=== PATIENT | female | born 1995 | race Caucasian/White ===

== ENCOUNTER 2017-04-25 20:06 | Emergency (ER) | payer BC ==
[~2017-04-25 20:06] MED LIST: AMOX-559 PO; EPIN0.3P15 IM; PRED-1 PO; PRED-420 PO
--- NOTE | 2017-04-25 20:12 | ER Report ---
History and Physical Time Seen By MD: 20:12 HPI/ROS CHIEF COMPLAINT: Allergic reaction HISTORY OF PRESENT ILLNESS: This is a 21-year-old female who presents to the emergency department with an allergic reaction. Patient states that she had an allergic reaction to a condom. Patient states that she had mild reaction about one week ago with a local rash and genital area. Patient states that today she had a worsening reaction to a condom noticed the rash around 4:30pm this afternoon she had a rash that started in her groin moved to the upper torso, her arms and now her her neck. Patient states that she does feel like her throat is "not quite right" and a little "tight", patient denies shortness of breath or chest pain. Patient denies using her EpiPen at home. Patient does not look like she is in distress. Vital signs are stable when I'm in the room. No audible wheezing. Patient denies fevers, chills, aches, nausea or vomiting. No headaches. REVIEW OF SYSTEMS: Constitutional: No fever, no chills. Eyes: No discharge. ENT: As above. Cardiovascular: No chest pain, no palpitations. Respiratory: No cough, no shortness of breath. Gastrointestinal: No abdominal pain, no vomiting. Genitourinary: No hematuria. Musculoskeletal: No back pain. Skin: As above Neurological: No headache. Allergies: Coded Allergies: BEE STINGS (Verified Allergy, Severe, 02/06/17) tree nut (Verified Allergy, Severe, 02/06/17) Home Meds Active Scripts Epinephrine (EPIPEN 2-CLIVE) 0.3 Mg/0.3 Ml Pen.injctr, 0.3 MG IM PRN, #1 PACK 0 Refills Prov:YADIEL ZELAYA BOTTOM BLEACHER- 04/25/17 Reported Medications [ control pills] No Conflict Check 04/25/17 Discontinued Reported Medications Epinephrine (EPIPEN 2-CLIVE) 0.3 Mg/0.3 Ml Pen.injctr, 0.3 MG IM 02/04/17 Discontinued Scripts Prednisone (PREDNISONE) 20 Mg Tablet, 20 MG PO BID, #10 TAB Prov:YADIEL ZELAYA [facility]- 04/25/17 Amoxicillin/Pot Clav 875-125 Mg Tab (AUGMENTIN 875-125 TABLET) 1 Each Tablet, 1 TAB PO Q12H for 21 Days, #42 TAB Prov:BUTCH DICKERSON MD 02/07/17 Prednisone 10 Mg Tab (PREDNISONE 10 MG TAB) 10 Mg Tablet, 50 MG PO QDAY for 3 Days, #47 TAB 50 mg by mouth daily for 3 days then 40 mg by mouth daily for 3 days then 30 mg by mouth daily for 3 days then 20 mg by mouth daily for 3 days then 10 mg by mouth daily for 3 days then 5 mg by mouth daily for 3 days. Prov:BUTCH DICKERSON MD 02/04/17 Past Medical/Surgical History A shunt has a past medical and surgical history of syncopal episodes, allergic reactions. Reviewed Nurses Notes: Yes Hx Substance Use Disorder: No Constitutional Vital Sign - Last 24 Hours 04/25/17 04/25/17 04/25/17 04/25/17 20:10 20:10 20:21 20:36 Temp 99.5 Pulse 70 67 89 Resp 18 B/P (MAP) 117/76 (90) 117/76 Pulse Ox 96 95 98 O2 Delivery Room Air 04/25/17 04/25/17 04/25/17 04/25/17 20:51 21:00 21:06 21:11 Pulse 91 90 91 B/P (MAP) 131/74 (93) Pulse Ox 100 99 99 Intake and Output 04/25/17 04/25/17 04/26/17 15:00 23:00 07:00 Intake Total 50 ml Balance 50 ml Physical Exam General Appearance: The patient is alert, has no immediate need for airway protection and no signs of toxicity. Eyes: Pupils equal and round no pallor or injection. ENT, Mouth: Mucous membranes are moist. Erythema to the posterior oropharynx with 2+ tonsillar hypertrophy. No uvular edema. Respiratory: There are no retractions, wheezing or adventitious sounds, lungs are clear to auscultation. Cardiovascular: Regular rate and rhythm, no murmurs, clicks or rubs. Gastrointestinal: Abdomen is soft and non tender, no masses, bowel sounds normal. Neurological: Alert and oriented 4. Moving all extremities. Following all commands. No focal neuro deficits. Skin: Warm and dry. Urticarial rash to the groin, chest, abdomen, back, neck and arms. The rash is blanchable, not coalesced. Musculoskeletal: Neck is supple non tender. Extremities are nontender, nonswollen and have full range of motion. DIFFERENTIAL DIAGNOSIS: After history and physical exam differential diagnosis was considered for allergic reaction. Medical Decision Making ED Course/Re-evaluation Clinical Indication for ER IV: Hydration, IV Access ED Course The patient was admitted to room. History and physical were obtained. Differential diagnosis considered. An IV was started. A 1 L normal saline bolus was given. EpiPen was used. 25 mg IV Benadryl, iron 25 mg IV Solu-Medrol, 20 mg IV and famotidine. The rash has improved. Patient states her breathing has improved as well. Patient states she feels tired but overall improved a prescription for prednisone and EpiPen's were sent to the patient's pharmacy. I did instruct patient to take the prednisone as directed. Patient was also encouraged to follow up with her primary care provider. She was also encouraged to return to the emergency department for any other concerns or worsening symptoms. Patient was agreeable to this plan of care. Patient had no questions or concerns at this time was discharged home. Decision to Disposition Date: Apr 25, 2017 Decision to Disposition Time: 21:30 Depart Departure Latest Vital Signs Vital Signs Date Time Temp Pulse Resp B/P (MAP) Pulse Ox O2 Delivery O2 Flow Rate FiO2 04/25/17 21:11 91 99 04/25/17 21:00 131/74 (93) 04/25/17 20:10 99.5 18 Room Air Impression: Primary Impression: Allergic reaction Condition: Improved Disposition: HOME OR SELF-CARE New Scripts Epinephrine (EPIPEN 2-CLIVE) 0.3 Mg/0.3 Ml Pen.injctr 0.3 MG IM PRN, #1 PACK 0 Refills Prov: YADIEL ZELAYA BOTTOM BLEACHER-BC 04/25/17 Patient Instructions: General Allergic Reaction (ED), Urticaria (ED) Additional Instructions: Drink plenty of fluids. Get plenty of rest. Follow-up with your primary care provider in 2-4 days if no improvement. If symptoms become worse we had shortness of breath or chest pain return to the emergency department immediately. If you use your EpiPen be sure to follow up in the emergency department. You can take 25-50 mg of Benadryl for the allergic reaction. Take the prednisone as prescribed. Do not use the condoms that caused the reaction. Problem Qualifiers Primary Impression: Allergic reaction Encounter type: initial encounter Qualified Codes: T78.40XA - Allergy, unspecified, initial encounter YADIEL ZELAYA-VIVIEN Apr 25, 2017 20:12
[2017-04-25] MEDS ORDERED: methylPREDNIS SUCC 125 MG/2ML IVP ONE (20:20)
[2017-04-25] MEDS ORDERED: FAMOTIDINE(*) 20MG/50ML PREMIX 50 ML IVPB ONE (20:20)
[2017-04-25] MEDS ORDERED: diphenhydrAMINE 50 MG/ML VIAL IVP ONE (20:20)
[2017-04-25] MEDS ORDERED: EPINEPHrine 0.3 MG SYR IM ONLY ONE (20:20)
[2017-04-25] MEDS ORDERED: NS(*) 0.9% 1000 ML BAG 1,000 ML IV ONE (20:20)
[2017-04-25] MEDS ORDERED: EPIN0.3P15 IM (20:36)
[2017-04-25] MEDS ORDERED: PRED20TA6 PO (20:40)
[2017-04-25] MEDS ORDERED: birth control pills (21:22)
[2017-04-25 21:30] VITALS: BP 116/64
== END 2017-04-25 21:33 | disposition home or self-care (01) ==
LOC: ER 20:22
DX: T78.40XA Allergy, unspecified, initial encounter (principal)
CPT/HCPCS: 96361; 96365; 96372; 96375; 99284; J0171; J1200; J2930; J3490; J7030

== ENCOUNTER 2018-08-09 00:15 | Emergency (ER) | payer BC ==
[~2018-08-09 00:15] MED LIST changes: +PRED20TA6 PO; +birth control pills
--- NOTE | 2018-08-09 00:24 | ER Report ---
History and Physical Time Seen By MD: 00:23 HPI/ROS CHIEF COMPLAINT: Syncopal episode HISTORY OF PRESENT ILLNESS: Patient is a 23-year-old female here with complaints of recurrent syncopal episode which occurred while the patient was urinating. Patient reportedly struck her head on the wall and was helped to bed at which time she had a recurrent syncopal episode. Patient does have a history of syncopal episodes which she describes as occurring when she stands up too quickly. Patient is afebrile, and a down [place] stable, alert and oriented. REVIEW OF SYSTEMS: Constitutional: No fever, no chills. Eyes: No discharge. ENT: No sore throat. Cardiovascular: No chest pain, no palpitations. Respiratory: No cough, no shortness of breath. Gastrointestinal: No abdominal pain, no vomiting. Genitourinary: No hematuria. Musculoskeletal: No back pain. Skin: No rashes. Neurological: + headache, + syncope Allergies: Coded Allergies: BEE STINGS (Verified Allergy, Severe, 02/06/17) tree nut (Verified Allergy, Severe, 02/06/17) Home Meds Active Scripts Epinephrine (EPIPEN 2-CLIVE) 0.3 Mg/0.3 Ml Pen.injctr, 0.3 MG IM PRN, #1 PACK 0 Refills Prov:YADIEL ZELAYA Mariann MMI TEACHER-BC 04/25/17 Reported Medications Ibuprofen (IBUPROFEN) 800 Mg Tablet, 1 TAB PO Q8H, TAB 08/09/18 [ control pills] No Conflict Check 04/25/17 Hx Substance Use Disorder: No Constitutional Vital Sign - Last 24 Hours 08/09/18 00:22 Temp 98.0 Pulse 74 Resp 16 B/P (MAP) 96/66 Pulse Ox 97 O2 Delivery Room Air Physical Exam General Appearance: The patient is alert, has no immediate need for airway protection and no signs of toxicity. Alert and oriented, no acute distress Eyes: Pupils equal and round no pallor or injection. ENT, Mouth: Mucous membranes are moist. Respiratory: There are no retractions, lungs are clear to auscultation. Cardiovascular: Regular rate and rhythm. Gastrointestinal: Abdomen is soft and non tender, no masses, bowel sounds normal. Neurological: No focal neurological deficits, cranial nerves intact Skin: Warm and dry, no rashes. Musculoskeletal: Neck is supple non tender. Extremities are nontender, nonswollen and have full range of motion. DIFFERENTIAL DIAGNOSIS: After history and physical exam differential diagnosis was considered for syncope including but not limited to vasovagal syncope, arrhythmia, dehydration, and blood loss. Medical Decision Making Data Points Result Diagram: 08/09/18 0125 08/09/18 0125 Laboratory Hematology Test 08/09/18 01:05 08/09/18 01:25 Urine Color Yellow Urine Clarity Cloudy Urine pH 7.0 pH (4.8-9.5) Urine Specific [place] 1.020 Urine Protein Negative mg/dL (NEGATIVE) Urine Glucose (UA) Negative mg/dL (NEGATIVE) Urine Ketones Negative mg/dL (NEGATIVE) Urine Blood Negative (NEGATIVE) Urine Nitrite Negative (NEGATIVE) Urine Bilirubin Negative (NEGATIVE) Urine Urobilinogen Negative mg/dL (0.2-1.9) Urine Leukocyte Esterase Negative (NEGATIVE) Urine RBC 3 /HPF (0-2/HPF) Urine WBC 5 /HPF (0-5/HPF) Urine Squamous Epithelial Cells Many /LPF (</=FEW) Urine Transitional Epithelial Cells Few /LPF (NONE-FEW) Urine Amorphous Crystals Few /HPF Urine Bacteria Few /HPF (NONE-FEW) Urine Hyaline Casts Few /LPF (NONE-FEW) Urine Mucus Few /HPF (NONE-FEW) Urine HCG, Qualitative Negative (NEGATIVE) Red Blood Count 4.40 M/uL (4.17-5.56) Mean Corpuscular Volume 88.5 fL (80.0-96.0) Mean Corpuscular Hemoglobin 30.8 pg (26.0-33.0) Mean Corpuscular Hemoglobin Concent 34.8 g/dL (32.0-36.0) Red Cell Distribution Width 12.6 % (11.5-14.5) Mean Platelet Volume 8.2 fL (7.2-11.1) Neutrophils (%) (Auto) 67.0 % (39.4-72.5) Lymphocytes (%) (Auto) 23.9 % (17.6-49.6) Monocytes (%) (Auto) 6.4 % (4.1-12.4) Eosinophils (%) (Auto) 2.2 % (0.4-6.7) Basophils (%) (Auto) 0.5 % (0.3-1.4) Nucleated RBC Relative Count (auto) 0.1 /100WBC Neutrophils # (Auto) 5.6 K/uL (2.0-7.4) Lymphocytes # (Auto) 2.0 K/uL (1.3-3.6) Monocytes # (Auto) 0.5 K/uL (0.3-1.0) Eosinophils # (Auto) 0.2 K/uL (0.0-0.5) Basophils # (Auto) 0.0 K/uL (0.0-0.1) Nucleated RBC Absolute Count (auto) 0.01 K/uL Sodium Level 139 mmol/L (137-145) Potassium Level 3.5 mmol/L (3.5-5.0) Chloride Level 105 mmol/L (98-107) Carbon Dioxide Level 21 mmol/L (22-31) Blood Urea Nitrogen 11 mg/dl (7-18) Creatinine 0.60 mg/dl (0.52-1.04) Glomerular Filtration Rate Calc > 60.0 Random Glucose 112 mg/dl (75-110) Calcium Level 9.2 mg/dl (8.4-10.2) Total Bilirubin 0.5 mg/dl (0.2-1.3) Aspartate Amino Transf (AST/SGOT) 22 U/L (0-35) Alanine Aminotransferase (ALT/SGPT) 27 U/L (0-56) Alkaline Phosphatase 66 U/L (0-126) Troponin I < 0.012 ng/ml Total Protein 6.9 g/dl (6.3-8.2) Albumin 4.0 g/dl (3.5-5.0) Chemistry Test 08/09/18 01:05 08/09/18 01:25 Urine Color Yellow Urine Clarity Cloudy Urine pH 7.0 pH (4.8-9.5) Urine Specific [place] 1.020 Urine Protein Negative mg/dL (NEGATIVE) Urine Glucose (UA) Negative mg/dL (NEGATIVE) Urine Ketones Negative mg/dL (NEGATIVE) Urine Blood Negative (NEGATIVE) Urine Nitrite Negative (NEGATIVE) Urine Bilirubin Negative (NEGATIVE) Urine Urobilinogen Negative mg/dL (0.2-1.9) Urine Leukocyte Esterase Negative (NEGATIVE) Urine RBC 3 /HPF (0-2/HPF) Urine WBC 5 /HPF (0-5/HPF) Urine Squamous Epithelial Cells Many /LPF (</=FEW) Urine Transitional Epithelial Cells Few /LPF (NONE-FEW) Urine Amorphous Crystals Few /HPF Urine Bacteria Few /HPF (NONE-FEW) Urine Hyaline Casts Few /LPF (NONE-FEW) Urine Mucus Few /HPF (NONE-FEW) Urine HCG, Qualitative Negative (NEGATIVE) White Blood Count 8.4 k/uL (4.5-11.0) Red Blood Count 4.40 M/uL (4.17-5.56) Hemoglobin 13.6 g/dL (12.0-16.0) Hematocrit 39.0 % (34.0-47.0) Mean Corpuscular Volume 88.5 fL (80.0-96.0) Mean Corpuscular Hemoglobin 30.8 pg (26.0-33.0) Mean Corpuscular Hemoglobin Concent 34.8 g/dL (32.0-36.0) Red Cell Distribution Width 12.6 % (11.5-14.5) Platelet Count 305 K/uL (150-450) Mean Platelet Volume 8.2 fL (7.2-11.1) Neutrophils (%) (Auto) 67.0 % (39.4-72.5) Lymphocytes (%) (Auto) 23.9 % (17.6-49.6) Monocytes (%) (Auto) 6.4 % (4.1-12.4) Eosinophils (%) (Auto) 2.2 % (0.4-6.7) Basophils (%) (Auto) 0.5 % (0.3-1.4) Nucleated RBC Relative Count (auto) 0.1 /100WBC Neutrophils # (Auto) 5.6 K/uL (2.0-7.4) Lymphocytes # (Auto) 2.0 K/uL (1.3-3.6) Monocytes # (Auto) 0.5 K/uL (0.3-1.0) Eosinophils # (Auto) 0.2 K/uL (0.0-0.5) Basophils # (Auto) 0.0 K/uL (0.0-0.1) Nucleated RBC Absolute Count (auto) 0.01 K/uL Glomerular Filtration Rate Calc > 60.0 Calcium Level 9.2 mg/dl (8.4-10.2) Total Bilirubin 0.5 mg/dl (0.2-1.3) Aspartate Amino Transf (AST/SGOT) 22 U/L (0-35) Alanine Aminotransferase (ALT/SGPT) 27 U/L (0-56) Alkaline Phosphatase 66 U/L (0-126) Troponin I < 0.012 ng/ml Total Protein 6.9 g/dl (6.3-8.2) Albumin 4.0 g/dl (3.5-5.0) Urinalysis Test 08/09/18 01:05 Urine Color Yellow Urine Clarity Cloudy Urine pH 7.0 pH (4.8-9.5) Urine Specific [place] 1.020 Urine Protein Negative mg/dL (NEGATIVE) Urine Glucose (UA) Negative mg/dL (NEGATIVE) Urine Ketones Negative mg/dL (NEGATIVE) Urine Blood Negative (NEGATIVE) Urine Nitrite Negative (NEGATIVE) Urine Bilirubin Negative (NEGATIVE) Urine Urobilinogen Negative mg/dL (0.2-1.9) Urine Leukocyte Esterase Negative (NEGATIVE) Urine RBC 3 /HPF (0-2/HPF) Urine WBC 5 /HPF (0-5/HPF) Urine Squamous Epithelial Cells Many /LPF (</=FEW) Urine Transitional Epithelial Cells Few /LPF (NONE-FEW) Urine Amorphous Crystals Few /HPF Urine Bacteria Few /HPF (NONE-FEW) Urine Hyaline Casts Few /LPF (NONE-FEW) Urine Mucus Few /HPF (NONE-FEW) Urine HCG, Qualitative Negative (NEGATIVE) EKG/Imaging EKG Interpretation PATIENT NAME: RNOIT PERALES : [id number] MR: [id number] V: [id number] EXAM DATE: ORDERING PHYSICIAN: AMBROSE DURAN TECHNOLOGIST: Test Reason : SYNCOPE Blood Pressure : / mmHG Vent. Rate : 102 BPM Atrial Rate : 102 BPM P-R Int : 130 ms QRS Dur : 076 ms QT Int : 326 ms P-R-T Axes : 060 056 035 degrees QTc Int : 424 ms Sinus tachycardia Nonspecific ST and T wave abnormality Abnormal ECG No previous ECGs available Referred By: Confirmed By: Imaging PATIENT NAME: Ronit Perales : 1995 MR: [id number] V: [id number] EXAM DATE: ORDERING PHYSICIAN: AMBROSE DURAN TECHNOLOGIST: Location: [facility] Patient: Ronit Perales : 1995 Visit/Account:[id number] Date of [facility]: 08/09/2018 CT BRAIN NO CONTRAST HISTORY: Fall. Syncope. COMPARISON STUDIES: None TECHNIQUE: Contiguous axial images were obtained from the skull base to the vertex. One of the following dose optimization techniques was utilized in the performance of this exam: automated exposure control; adjustment of the mA and/or kv according to patient size; or use of iterative reconstruction technique. Specific details can be referenced in the facility's radiology CT exam operational policy. FINDINGS: Hemorrhage: Negative Ventricles / sulci / fissures: Negative Masses / midline shift: Negative White matter: Negative Costa-white differentiation: Negative Vessels: Negative Extra-axial spaces: Negative Bones/skull base: Negative Visualized mastoid air cells / paranasal sinuses: Negative Scalp and soft tissues: Negative. Other findings: None significant IMPRESSION: 1. No acute intracranial abnormality. ED Course/Re-evaluation ED Course Patient is a 23-year-old female here with complaints of recurrent syncopal episode. Patient did have her syncopal episode while micturating. CT imaging of the head showed no acute intracranial findings or fractures. Labs were unremarkable with no signs of anemia, electrolyte abnormalities, infectious etiology. EKG showed no acute findings. Patient was given a liter of fluid and admittedly had not been keeping up with her fluids today which may be contributing to her current symptoms. Patient was alert and oriented, hemodynamically stable throughout course. Return precautions provided, PCP follow-up recommended. Decision to Disposition Date: Aug 09, 2018 Decision to Disposition Time: 02:11 Depart Departure Latest Vital Signs Vital Signs Date Time Temp Pulse Resp B/P (MAP) Pulse Ox O2 Delivery O2 Flow Rate FiO2 08/09/18 00:22 98.0 74 16 96/66 97 Room Air Impression: Primary Impression: Syncope Condition: Improved Disposition: HOME OR SELF-CARE Patient Instructions: Syncope (DC) Additional Instructions: Please drink plenty of water. Please return promptly if you develop recurrent symptoms, recurrent episodes of passing out, fevers, chills, nausea, vomiting. please follow-up with your family doctor in the next 24-48 hours. AMBROSE DURAN DO Aug 09, 2018 00:24
[2018-08-09] MEDS ORDERED: IBUP800T37 PO (00:29)
[2018-08-09] MEDS ORDERED: NS(*) 0.9% 1000 ML BAG 1,000 ML IV ONE (00:37)
[2018-08-09 01:54] LABS: PLATELET COUNT, AUTOMATED 305 K/uL (150-450)
--- NOTE | 2018-08-09 01:55 | EKG ---
FACILITY: [facility] PATIENT NAME: RONIT LEAVITT : [id number] MR: [id number] V: [id number] EXAM DATE: ORDERING PHYSICIAN: AMBROSE DURAN TECHNOLOGIST: LEXI Reynoso Reason : SYNCOPE Blood Pressure : / mmHG Vent. Rate : 102 BPM Atrial Rate : 102 BPM P-R Int : 130 ms QRS Dur : 076 ms QT Int : 326 ms P-R-T Axes : 060 056 035 degrees QTc Int : 424 ms Sinus tachycardia Nonspecific ST and T wave abnormality Abnormal ECG No previous ECGs available Confirmed by Job Lamb ([id number]) on 08/09/2018 7:33:08 AM Referred By: Confirmed By:Job Valle
[2018-08-09 02:00] VITALS: BP 93/67
--- NOTE | 2018-08-09 02:01 | RADIOLOGY IMAGING REPORT ---
[place] [facility] [place] Cary Perales : 1995 MR: [id number] V: [id number] EXAM DATE: ORDERING PHYSICIAN: AMBROSE DURAN TECHNOLOGIST: Location: [facility] [place] Patient: Cary Perales : 1995 Visit/Account:[id number] Date of [place]: 08/09/2018 CT BRAIN NO CONTRAST HISTORY: Fall. Syncope. COMPARISON STUDIES: None TECHNIQUE: Contiguous axial images were obtained from the skull base to the vertex. One of the [employer] dose optimization techniques was utilized in the performance of this exam: automated exposure co ntrol; adjustment of the mA and/or kv according to patient size; or use of iterative reconstruction t echnique. Specific details can be referenced in the facility's radiology CT exam operational policy. FINDINGS: Hemorrhage: Negative Ventricles / sulci / fissures: Negative Masses / midline shift: Negative White matter: Negative Costa-white differentiation: Negative Vessels: Negative Extra-axial spaces: Negative Bones/skull base: Negative Visualized mastoid air cells / paranasal sinuses: Negative Scalp and soft tissues: Negative. Other findings: None significant IMPRESSION: 1. No acute intracranial abnormality. Report Dictated By: Ankit Wong MD at 08/09/2018 1:49 AM Report E-Signed By: Ankit Wong MD at 08/09/2018 1:57 AM WSN:[id number]
== END 2018-08-09 02:41 | disposition home or self-care (01) ==
LOC: ER 00:39
DX: R55 Syncope and collapse (principal)
CPT/HCPCS: 70450; 81001; 81025; 84484; 85025; 93005; 96360; 96361; 99284; J7030; 82040; 82247; 82310; 82374; 82435; 82565; 82947; 84075; 84132; 84155; 84295; 84450; 84460; 84520